=== PATIENT | female | born 1945 | race Caucasian/White ===

== ENCOUNTER 2016-09-18 15:20 | Emergency (ER) | payer BC, MEDICARE ==
--- NOTE | 2016-09-18 17:15 | EDM.PDOC ---
[id number]: BLEEDING VAG Time Seen by Provider: 09/18/16 16:45 Source of Information: Reports: Patient History Limitations: Reports: No limitations - History of Present Illness INITIAL COMMENTS - FREE TEXT/NARRATIVE: 70-year-old female who has not seen a physician in years developed some vaginal spotting over the past several days, and today has developed heavy vaginal bleeding with some cramping. She has been amenorrheic for almost 20 years. She is on no medications. She has no chronic health problems that she knows of. Onset: gradual (Over the past 3 days, much heavier today) Location: Reports: abdomen (Very lower abdominal or pelvic discomfort.) Pelvic Pain Score (Numeric/FACES): 5 - Related Data Allergies Allergy/AdvReac Type Severity Reaction Status Date / Time Penicillins Allergy Itching Verified 09/18/16 16:33 Sulfa (Sulfonamide Allergy Itching Verified 09/18/16 16:33 Antibiotics) Home Meds: Home Meds NK [No Known Home Meds] 09/18/16 [History] Past Medical History [employer] History: Reports: Musculoskeletal History: Reports: Fracture Oncologic (Cancer) History: Reports: Other (see below) Other Oncologic History: skin - Past Surgical History Female Surgical History: Reports: section Social & Family History - Tobacco Use Smoking Status *Q: Current Every Day Smoker Years of Tobacco use: 20 Packs/Tins Daily: 0.3 - Caffeine Use Caffeine Use: Reports: Coffee, Tea - Recreational Drug Use Recreational Drug Use: No ED ROS GENERAL - Review of Systems Review Of Systems: See Below Constitutional: Denies: fever, chills Respiratory: Denies: Shortness of Breath Cardiovascular: Denies: Chest pain GI/Abdominal: Reports: Abdominal pain : Reports: no symptoms Musculoskeletal: Reports: no symptoms Skin: Reports: no symptoms Neurological: Denies: Headache Psychiatric: Reports: No symptoms ED EXAM, GENERAL - Physical Exam Exam: See Below Exam Limited By: No limitations General Appearance: alert, no apparent distress, anxious Eye Exam: bilateral eye: EOMI Respiratory/Chest: no respiratory distress, lungs clear Cardiovascular: regular rate, rhythm GI/Abdominal: soft, other (Uncomfortable to palpation in the suprapubic area) (Female) Exam: Vaginal bleeding (There is significant blood in the vaginal vault which appears to be coming through the cervix. She is tender to palpation along the anterior cervical wall but I do not palpate any intravaginal masses.) Neurological: alert, oriented Psychiatric: normal affect, normal mood Skin Exam: Warm, Dry Course - Vital Signs Last Recorded V/S: Last Vital Signs Temp 95.7 F 09/18/16 16:29 Pulse 83 09/18/16 18:58 Resp 16 09/18/16 18:58 BP 229/119 H 09/18/16 18:58 Pulse Ox 92 L 09/18/16 18:58 - Orders/Labs/Meds Orders: Active Orders 24 hr Category Date Time Status Transvaginal Non OB [US] Stat Exams 09/18/16 17:04 Taken Labs: Laboratory Tests 09/18/16 09/18/16 Range/Units 17:13 17:13 WBC 17.8 H (4.5-11.0) K/uL RBC 5.38 (3.30-5.50) M/uL Hgb 16.9 H (12.0-15.0) g/dL Hct 49.4 H (36.0-48.0) % MCV 92 (80-98) fL MCH 31 (27-31) pg MCHC 34 (32-36) % Plt Count 293 (150-400) K/uL Neut % (Auto) 70 H (36-66) % Lymph % (Auto) 22 L (24-44) % [place] % (Auto) 7 H (2-6) % Eos % (Auto) 1 L (2-4) % Baso % (Auto) 1 (0-1) % Sodium 140 (140-148) mmol/L Potassium 4.0 (3.6-5.2) mmol/L Chloride 105 (100-108) mmol/L Carbon Dioxide 25 (21-32) mmol/L Anion Gap 9.8 (5.0-14.0) mmol/L BUN 23 H (7-18) mg/dL Creatinine 0.9 (0.6-1.0) mg/dL Est Cr Clr Drug Dosing 53.83 mL/min Estimated GFR (MDRD) > 60 (>60) Glucose 103 (74-106) mg/dL Calcium 9.7 (8.5-10.1) mg/dL Total Bilirubin 0.3 (0.2-1.0) mg/dL AST 15 (15-37) U/L ALT 30 (12-78) U/L Alkaline Phosphatase 74 (46-116) U/L Total Protein 7.7 (6.4-8.2) g/dL Albumin 4.2 (3.4-5.0) g/dL Globulin 3.5 (2.3-3.5) g/dL Albumin/Globulin Ratio 1.2 (1.2-2.2) - Re-Assessments/Exams Free Text/Narrative Re-Assessment/Exam: 09/18/16 17:15 A CBC and CMP were obtained as well as a pelvic ultrasound. 09/18/16 19:02 Hemoglobin was 16, white count 17,000. Pelvic ultrasound confirmed an intrauterine mass of 2.8 cm. This is discussed with [employer] in [place], the patient has an appointment with Dr. Reis tomorrow at 11:45 for an endometrial biopsy. Departure - Departure Time of Disposition: 19:13 Disposition: Home, Self-Care 01 Condition: good Clinical Impression: Abnormal vaginal bleeding Instructions: Abnormal Uterine Bleeding Referrals: PCP,None [Primary Care Provider] - Forms: ED Department Discharge Care Plan Goals: You have an appointment tomorrow at 11:[address] Reis at the clinic in [place] next to the hospital. [address] [place] [address]. - My Orders Last 24 Hours: My Active Orders 09/18/16 17:04 Transvaginal Non OB [US] Stat - Assessment/Plan Last 24 Hours: My Active Orders 09/18/16 17:04 Transvaginal Non OB [US] Stat
[2016-09-18 18:59] VITALS: BP 229/119
== END 2016-09-18 19:13 | disposition home or self-care (01) ==
LOC: JP.ED 15:20
DX: N93.9 Abnormal uterine and vaginal bleeding, unspecified (principal); F17.210 Nicotine dependence, cigarettes, uncomplicated; Z88.0 Allergy status to penicillin; Z88.2 Allergy status to sulfonamides; Z98.890 Other specified postprocedural states
CPT/HCPCS: 36415; 76830; 80053; 85025; 99284; 99284-25

== ENCOUNTER 2017-01-10 06:53 | Day surgery (SDC) | payer MEDICARE ==
[2017-01-10] MEDS ORDERED: Midazolam 1 MG/ML 2 ML SDV ONE (07:12)
[2017-01-10] MEDS ORDERED: Propofol 200 MG/20 ML SDV ONE (07:12)
[2017-01-10] MEDS ORDERED: fentaNYL 100 MCG/2 ML SDV ONE (07:12)
[2017-01-10] MEDS ORDERED: Lisinopril 10 MG Tab PO ONE (07:25)
[2017-01-10] MEDS ORDERED: Lactated Ringers 1,000 ML IV SCH (07:30)
[2017-01-10 10:56] VITALS: BP 168/90
--- NOTE | 2017-01-10 14:07 | OR ---
DATE OF PROCEDURE: 01/10/2017 PREOPERATIVE DIAGNOSIS: Colon cancer screening. POSTOPERATIVE DIAGNOSIS: Diverticulosis, small transverse colon polyp. PROCEDURE PERFORMED: Colonoscopy to the cecum with biopsy resection of small transverse colon polyp. ANESTHESIA: IV anesthesia with monitored anesthesia care. INDICATION: This 71-year-old white female is referred for a colonoscopy for colon cancer screening. She has never had a colonoscopic exam. I counseled her for the procedure including risks and alternatives, and she gave her informed consent to proceed. DESCRIPTION OF PROCEDURE: The patient was placed in the left lateral decubitus position. IV anesthesia was administered by the Anesthesia Service. Time-out was held. A rectal exam was performed, which was unremarkable. The flexible video Olympus colonoscope was introduced through her anus, up her rectum, and out her colon all way to the cecum. EN route, we saw several left-sided diverticula. There was no bleeding or inflammation associated with them. The scope was then slowly withdrawn, examining the mucosa throughout. No additional mucosal abnormalities were noted except for a small polyp seen in the transverse colon, which was removed with a couple of bites of the biopsy forceps. The scope was retroflexed in the rectum with the distal rectum appearing unremarkable. The scope was straightened and removed. She tolerated the procedure well. Jair Campbell MD /[id number] BRIANNA
== END 2017-01-10 10:30 | disposition home or self-care (01) ==
LOC: JP.SDS 06:53
PROVIDERS: ATTEND Surgery
DX: Z12.11 Encounter for screening for malignant neoplasm of colon (principal); K63.5 Polyp of colon; K57.30 Diverticulosis of large intestine without perforation or abscess without bleeding; I10 Essential (primary) hypertension; F17.200 Nicotine dependence, unspecified, uncomplicated; Z88.0 Allergy status to penicillin; Z88.2 Allergy status to sulfonamides
CPT/HCPCS: 45380; A9270; J2250; J2704; J3010; J7120; 88305